=== PATIENT | female | born 1980 | race Caucasian/White ===

== ENCOUNTER 2019-03-19 13:54 | Outpatient (CLI) | payer BC ==
[~2019-03-19 13:54] MED LIST: FERUMOXYTOL (NON-ESRD) 510 MG/NS 100 ML IV PRN; FERUMOXYTOL 510 MG in NORMAL SALINE 100 ML IV PRN; NORMAL SALINE 250 ML IV PRN
[2019-03-19 14:22] VITALS: BP 120/58
== END 2019-03-19 15:40 | disposition home or self-care (01) ==
LOC: II 13:54 → 5TH 14:02 → II 15:40
PROVIDERS: ATTEND Internal Medicine Hematology & Oncology
PROC: 3E043GC Introduction of Other Therapeutic Substance into Central Vein, Percutaneous Approach (ICD-10-PCS; principal; 2019-03-19)
DX: D50.8 Other iron deficiency anemias (principal); K90.9 Intestinal malabsorption, unspecified
CPT/HCPCS: 96365; Q0138; J7050

== ENCOUNTER 2019-03-26 13:48 | Outpatient (CLI) | payer BC ==
[~2019-03-26 13:48] MED LIST changes: -FERUMOXYTOL (NON-ESRD) 510 MG/NS 100 ML IV PRN
[2019-03-26 14:11] VITALS: BP 115/62
== END 2019-03-26 14:47 | disposition home or self-care (01) ==
LOC: II 13:48 → 5TH 13:50 → II 14:47
PROVIDERS: ATTEND Internal Medicine Hematology & Oncology
PROC: 3E033GC Introduction of Other Therapeutic Substance into Peripheral Vein, Percutaneous Approach (ICD-10-PCS; principal; 2019-03-26)
DX: D50.8 Other iron deficiency anemias (principal); K90.9 Intestinal malabsorption, unspecified
CPT/HCPCS: 96365; Q0138; J7050

== ENCOUNTER 2019-12-09 13:25 | Observation (INO) | payer BC ==
[2019-12-09] MEDS ORDERED: ONDANSETRON 4 MG TAB.RAPDIS PO ONE (14:30)
--- NOTE | 2019-12-09 14:30 | ER Document Report ---
ED Medical Screen (RME) - General Chief Complaint: Abdominal Pain Stated Complaint: ABDOMINAL PAIN/NAUSEA/VOMITING Time Seen by Provider: 12/09/19 14:25 Primary Care Provider: ROMARIO WEISS PA-C [Primary Care Provider] - Follow up as needed Mode of Arrival: Wheelchair Information source: Patient Notes: 39-year-old female presents to ED for complaint of severe abdominal pain worse in the epigastric area. She states she has had nausea and vomiting. She does not have any history of this pain or vomiting in the past. She states she did eat sausage dip last night at dinner but stayed up a while after that. She states she has not had any alcohol in the least a week. Patient is alert oriented respirations regular nonlabored speaking in full sentences. She does still have her gallbladder. She states she has been using phentermine for weight loss. I have greeted and performed a rapid initial assessment of this patient. A comprehensive ED assessment and evaluation of the patient, analysis of test results and completion of medical decision making process will be conducted by an additional ED providers. TRAVEL OUTSIDE OF THE [place] IN LAST 30 DAYS: No - Related Data Allergies/Adverse Reactions: Penicillins Allergy (Verified 03/18/19 14:32) Physical Exam - Vital signs Vitals: Temp Pulse Resp BP Pulse Ox 98.1 F 72 18 118/63 100 12/09/19 14:00 12/09/19 14:00 12/09/19 14:00 12/09/19 14:00 12/09/19 14:00 Course - Vital Signs Vital signs: Temp Pulse Resp BP Pulse Ox 98.1 F 72 18 118/63 100 12/09/19 14:00 12/09/19 14:00 12/09/19 14:12/09/19 14:12/09/19 14:00 Doctor's Discharge - Discharge Referrals: ROMARIO WEISS PA-C [Primary Care Provider] - Follow up as needed
[2019-12-09 15:07] LABS: ABSOLUTE BASOPHILS # (AUTO) 0.1 10^3/uL (0.0-0.2); ABSOLUTE LYMPHOCYTES (AUTO) 0.9 10^3/uL (0.5-4.7); ABSOLUTE MONOCYTES (AUTO) 0.5 10^3/uL (0.1-1.4); ABSOLUTE NEUT (AUTO) 7.3 10^3/uL (1.7-8.2); BASOPHILS % (AUTO) 0.6 % (0-2); EOSINOPHILS % (AUTO) 0.4 % (0-6); HEMATOCRIT 46.5 % (36.0-47.0); HEMOGLOBIN 15.8 g/dL (12.0-15.5); MEAN CORPUSCULAR HEMOGLOBIN 30.2 pg (27.0-33.4); MEAN CORPUSCULAR HGB CONC 34.1 g/dL (32.0-36.0); MEAN CORPUSCULAR VOLUME 89 fl (80-97); PLATELET COUNT 346 10^3/uL (150-450); RED BLOOD COUNT 5.24 10^6/uL (3.72-5.28); RED CELL DISTRIBUTION WIDTH 13.2 % (11.5-14.0); TOTAL CELLS COUNTED % (AUTO) 100 %; WHITE BLOOD COUNT 8.8 10^3/uL (4.0-10.5)
[2019-12-09 15:22] LABS: AMORPHOUS SEDIMENT,URINE 1+ /HPF; APPEARANCE,URINE TURBID; BILIRUBIN,URINE NEGATIVE (NEGATIVE); COLOR,URINE YELLOW; GLUCOSE, URINE NEGATIVE (NEGATIVE); KETONES,URINE 80 mg/dL (NEGATIVE); PROTEIN,URINE 30 mg/dL (NEGATIVE); URINE SPECIFIC GRAVITY 1.017; UROBILINOGEN,URINE NEGATIVE mg/dL (<2.0)
[2019-12-09 15:30] LABS: ALBUMIN 4.7 g/dL (3.5-5.0); ALKALINE PHOSPHATASE 86 U/L (38-126); ANION GAP 10 (5-19); ASPARTATE AMINO TRANSFERASE 18 U/L (14-36); BILIRUBIN,TOTAL 0.6 mg/dL (0.2-1.3); BLOOD UREA NITROGEN 9 mg/dL (7-20); CALCIUM 10.3 mg/dL (8.4-10.2); CARBON DIOXIDE 27 mmol/L (22-30); CHLORIDE 99 mmol/L (98-107); GLUCOSE 103 mg/dL (75-110); POTASSIUM 4.6 mmol/L (3.6-5.0); TOTAL PROTEIN 7.6 g/dL (6.3-8.2)
--- NOTE | 2019-12-09 15:35 | RADIOLOGY REPORT (SQ) ---
EXAM DESCRIPTION: U/S ABDOMEN LIMITED W/O DOP COMPLETED DATE/TIME: 12/09/2019 3:24 pm REASON FOR STUDY: upper abdominal pain COMPARISON: None. TECHNIQUE: Dynamic and static grayscale images acquired of the abdomen and recorded on PACS. Additio nal selected color Doppler and spectral images recorded. LIMITATIONS: None. FINDINGS: PANCREAS: No masses. Visualized pancreatic duct normal caliber. LIVER: No masses. Echotexture normal. LIVER VASCULATURE: Normal directional flow of the main portal vein and hepatic veins. GALLBLADDER: No stones. Normal wall thickness. No pericholecystic fluid. ULTRASOUND-DETECTED PARDO'S SIGN: Negative. INTRAHEPATIC DUCTS AND COMMON DUCT: CBD and intrahepatic ducts normal caliber. No filling defects. INFERIOR VENA CAVA: Normal flow. AORTA: No aneurysm. RIGHT KIDNEY: Normal size measuring 11.8 cm. Normal echogenicity. No solid or suspicious masses. No hydronephrosis. No calcifications. PERITONEAL AND RIGHT PLEURAL SPACE: No ascites or effusions. OTHER: No other significant findings. IMPRESSION: Unremarkable right upper quadrant ultrasound. TECHNICAL DOCUMENTATION: JOB ID: [id number]- All Rights Reserved Reading location - IP/workstation name: [email or web address]
[2019-12-09] MEDS ORDERED: NORMAL SALINE 1000 ML 1,000 ML IV ONE (17:48)
[2019-12-09] MEDS ORDERED: MAG HYDROX/AL HYDROX/SIMETH SUSP 30 ML UDCUP PO ONE (17:49)
[2019-12-09] MEDS ORDERED: LIDOCAINE 2% VISCOUS SOLN 15 ML UDCUP PO ONE (17:49)
--- NOTE | 2019-12-09 17:51 | ER Document Report ---
ED GI/ - General Chief Complaint: Nausea/Vomiting Stated Complaint: ABDOMINAL PAIN/NAUSEA/VOMITING Time Seen by Provider: 12/09/19 14:25 Primary Care Provider: ROMARIO WEISS PA-C [NO LOCAL MD] - Follow up as needed Mode of Arrival: Wheelchair Notes: Patient is a 39-year-old white female with no significant past medical history who presents to the emergency department the chief complaint of epigastric abdominal pain that began this morning. Patient reports the pain is a burning pain located primarily in the epigastrium and right upper quadrant. She states the pain has worsened throughout the day. It is better with forward flexion of the spine and abdomen and worse with full extension and standing upright. She states it is associated with vomiting x2 after taking oral Tums. She denies any diarrhea. States she had an episode like this once before in the past was evaluated by her regular doctor who ordered an abdominal ultrasound which was normal. She does admit to recently taking prednisone for a sore throat complaint. Is concerned this may have caused a "gastritis". She denies any unusual changes to her diet or any alcohol. Denies any fever, chills or night sweats. No chest pain or shortness of breath. TRAVEL OUTSIDE OF THE [place] IN LAST 30 DAYS: No - Related Data Allergies/Adverse Reactions: Penicillins Allergy (Verified 03/18/19 14:32) Past Medical History - General Information source: Patient - Social History Smoking Status: Never Smoker Frequency of alcohol use: Rare Family History: None Patient has suicidal ideation: No Patient has homicidal ideation: No Review of Systems - Review of Systems Constitutional: No symptoms reported EENT: No symptoms reported Cardiovascular: No symptoms reported Respiratory: No symptoms reported Gastrointestinal: Abdominal pain, Diarrhea, Nausea Genitourinary: No symptoms reported Female Genitourinary: No symptoms reported Musculoskeletal: No symptoms reported Skin: No symptoms reported Neurological/Psychological: No symptoms reported Physical Exam - Vital signs Vitals: Temp Pulse Resp BP Pulse Ox 98.1 F 72 18 118/63 100 12/09/19 14:00 12/09/19 14:00 12/09/19 14:00 12/09/19 14:00 12/09/19 14:00 - General General appearance: Appears well In distress: Mild - HEENT Head: Normocephalic, Atraumatic Eyes: Normal Pupils: PERRL Nasal: Normal Mouth/Lips: Normal Mucous membranes: Moist Pharynx: Normal Neck: Normal - Respiratory Respiratory status: No respiratory distress Chest status: Nontender Breath sounds: Normal Chest palpation: Normal - Cardiovascular Rhythm: Regular Heart sounds: Normal auscultation - Abdominal Inspection: Normal Distension: No distension Bowel sounds: Normal Tenderness: Tender - Diffuse tenderness to light palpation in all quadrants Organomegaly: No organomegaly - Back Back: No: CVA tenderness - Neurological Neuro grossly intact: Yes Cognition: Normal Orientation: AAOx4 [place] Coma Scale Eye Opening: Spontaneous [place] Coma Scale Verbal: Oriented [place] Coma Scale Motor: Obeys Commands [place] Coma Scale Total: 15 Speech: Normal Sensory: Normal - Psychological Associated symptoms: Normal affect, Normal mood - Skin Skin Temperature: Warm Skin Moisture: Dry Skin Color: Normal Course - Re-evaluation Re-evalutation: 12/09/19 18:41 Reevaluation of the patient at this time, status post about 300 mL's of normal saline, GI cocktail the patient is not feeling much better. Will order IV Protonix and 0.5 Dilaudid. The gallbladder ultrasound was normal however her pain pattern is more diffuse in the abdomen. We will order a CT scan of the abdomen at this time. 12/09/19 19:50 Reevaluation at this time, I have just spoken with the radiologist who advised they cannot clearly define the abnormality in the patient's CAT scan that is infraumbilical and midline. I called the surgeon economics teacher to ask if he would mind looking to see if he sees any abnormalities that are surgically related as the radiologist could not exclude appendicitis. He advised that he would not evaluate the scan until he had a definitive finding from radiology. I discussed the case with Dr. Hansen, she will follow with the patient at this time. The patient has been ordered more Zofran for increased nausea after given Dilaudid. Her pain has only improved slightly. The radiologist would like another CAT scan after the patient has had time to drink oral contrast in hopes of more clearly defining the patient's CAT scan abnormality. I discussed this with the patient and her family and they are in agreement with the plan for repeat CAT scan after oral contrast. Dr. Hansen is aware and will follow. Patient is stable at this time of transfer. - Vital Signs Vital signs: Temp Pulse Resp BP Pulse Ox 98.2 F 73 18 118/67 99 12/09/19 17:09 12/09/19 17:09 12/09/19 17:09 12/09/19 17:09 12/09/19 17:09 - Laboratory Result Diagrams: 12/09/19 14:50 12/09/19 14:50 Laboratory results interpreted by me: 12/09/19 12/09/19 12/09/19 14:50 14:50 14:50 Hgb 15.8 H Lymph % (Auto) 10.0 L Seg Neutrophils % 83.0 H Sodium 135.7 L Calcium 10.3 H Urine Protein 30 H Urine Ketones 80 H - EKG Interpretation by Dc EKG shows normal: Sinus rhythm Rate: Normal Additional EKG results interpreted by me: 12/09/19 18:48 Sinus rhythm at 63 bpm. Normal intervals. No STEMI. Interpreted by ED attending. - Transfer of Care Care transferred to following provider: Dr. Hansen Discharge - Discharge Clinical Impression: Abdominal pain Qualifiers: Abdominal location: generalized Qualified Code(s): R10.84 - Generalized abdominal pain Condition: Stable Disposition: OTHER Referrals: ROMARIO WEISS PA-C [NO LOCAL MD] - Follow up as needed
[2019-12-09] MEDS ORDERED: PANTOPRAZOLE SODIUM 40 MG VIAL IV ONE (18:40)
[2019-12-09] MEDS ORDERED: HYDROMORPHONE HCL INJ/PF 2 MG/ML AMPULE IV ONE (18:40)
[2019-12-09] MEDS ORDERED: ONDANSETRON HCL INJ/PF 4 MG/2 ML SDV IV ONE ×2 (19:49→20:58)
--- NOTE | 2019-12-09 19:49 | RADIOLOGY REPORT (SQ) ---
EXAM DESCRIPTION: CT ABD/PELVIS WITH IV ONLY COMPLETED DATE/TIME: 12/09/2019 7:19 pm REASON FOR STUDY: diffuse abd pain COMPARISON: None. TECHNIQUE: CT scan of the abdomen and pelvis performed using helical scanning technique with dynamic intravenous contrast injection. No oral contrast. Images reviewed with lung, soft tissue, and bone windows. Reconstructed coronal and sagittal MPR images reviewed. Delayed images for evaluation of the urinary system also acquired. All images stored on PACS. All CT scanners at this facility use dose modulation, iterative reconstruction, and/or weight based d osing when appropriate to reduce radiation dose to as low as reasonably achievable (ALARA). [facility]: Dose Right [facility]: CareDose [facility]: Dose Right [facility]: Teradose 4D [facility]: Prisync CONTRAST TYPE AND DOSE: contrast/concentration: Isovue 350.00 mg/ml; Total Contrast Delivered: 73.0 ml; Total Saline Delivered: 66.0 ml RENAL FUNCTION: Creatinine 0.6 RADIATION DOSE: CT Rad equipment meets quality standard of care and radiation dose reduction techniq ues were employed. CTDIvol: 7.8 - 9.2 mGy. DLP: 891 mGy-cm.. LIMITATIONS: No oral contrast FINDINGS: In the midline infraumbilical region, a tubular hyperdense structure is present measuring about 140 Hounsfield units in density, about 10 cm in greatest length and 14 mm in greatest transvers e diameter. This is near the cecum, and amongst multiple distal small bowel loops. This may represe nt a Meckel's diverticulum with calcification in the wall. This could also represent a markedly abno rmal appendix. Short segment of small bowel mural calcification is possible. Adnexal pathology rela reyna to female pelvic organs is considered unlikely, as this is fairly far superior of out of the pelv is. Findings discussed with Dr. Kimball in the emergency room. LOWER CHEST: No significant findings. No nodules or infiltrates. LIVER: Normal size. No masses. No dilated ducts. SPLEEN: Normal size. No focal lesions. PANCREAS: No masses. No significant calcifications. No adjacent inflammation or peripancreatic fluid collections. Pancreatic duct not dilated. GALLBLADDER: No identified stones by CT criteria. No inflammatory changes to suggest cholecystitis. ADRENAL GLANDS: No significant masses or asymmetry. RIGHT KIDNEY AND URETER: No solid masses. No significant calcifications. No hydronephrosis or hyd roureter. LEFT KIDNEY AND URETER: No solid masses. No significant calcifications. No hydronephrosis or hydr oureter. AORTA AND VESSELS: No aneurysm. No dissection. Renal arteries, SMA, celiac without stenosis. RETROPERITONEUM: No retroperitoneal adenopathy, hemorrhage or masses. BOWEL AND PERITONEAL CAVITY: No CT evidence of bowel obstruction. No free intraperitoneal air or flu id. Large amount of stool in the ascending and transverse colon. Question Meckel's diverticulum meghna roula markedly abnormal appendix as above. PELVIS: No mass. No free fluid. Normal bladder. Normal size uterus and ovaries ABDOMINAL WALL: No masses. No hernias. BONES: No significant or acute findings. OTHER: No other significant finding. IMPRESSION: Tubular partially calcified hyperdense bowel like structure in the mid abdomen. This co uld represent a Meckel's diverticulum or markedly abnormal appendix. Short segment of small bowel wi th mural calcification is possible. Balloon Maker pathology considered unlikely. Findings discussed with the emergency room attending physician. TECHNICAL DOCUMENTATION: JOB ID: [id number] Quality ID # [id number]: Final reports with documentation of one or more dose reduction techniques (e.g., Au tomated exposure control, adjustment of the mA and/or kV according to patient size, use of iterative reconstruction technique) 2010 [employer]- All Rights Reserved Reading location - IP/workstation name: [email or web address]
--- NOTE | 2019-12-09 21:51 | EKG REPORT ---
SEVERITY:- NORMAL ECG - SINUS RHYTHM : Confirmed by: Tabitha Santos MD 09-Dec-2019 21:50:44
[2019-12-09] MEDS ORDERED: PROMETHAZINE HCL INJ 25 MG/1 ML VIAL IV ONE (22:41)
[2019-12-09] MEDS ORDERED: NORMAL SALINE 500 ML IV ONE (22:42)
[2019-12-09] MEDS ORDERED: FENTANYL CITRATE INJ/PF 100 MCG/2 ML AMPUL IV ONE (23:26)
[2019-12-10] MEDS ORDERED: PROMETHAZINE HCL INJ 25 MG/1 ML VIAL IV ONE (02:14)
[2019-12-10] MEDS ORDERED: FENTANYL CITRATE INJ/PF 100 MCG/2 ML AMPUL IV ONE ×2 (02:14→07:04)
[2019-12-10] MEDS ORDERED: NORMAL SALINE 500 ML IV ONE (02:15)
--- NOTE | 2019-12-10 03:27 | ER Document Report ---
Doctor's Note Notes: 12/10/19 03:25 Care of this patient was turned over to me by physician assistant news director Jigar. In short, this is a 39-year-old female who developed abdominal pain, nausea, vomiting. She states she is not passing any gas. She is afebrile.. On physical exam she has diffuse moderate abdominal tenderness with some voluntary guarding but no rebound. At the time of my initial evaluation, patient had been vomiting heavily, was not tolerating oral contrast. She required further medication for pain and nausea. Decision was made to proceed with administration of oral contrast, as noncontrasted CT scan was inconclusive. She was medicated with fentanyl, Phenergan, IV fluids. She was able to tolerate more of the oral contrast. Serial abdominal exams were performed and found to remain tender with some voluntary guarding, but again no other peritoneal signs. Her vitals remained stable. At this point, patient has not consumed enough of the oral contrast for repeat CT scan. Care of this patient is turned over to physician assistant news director Sarthak Peterson. Please see his note for the remainder this patient's ED course and disposition.
[2019-12-10] MEDS ORDERED: DIPHENHYDRAMINE HCL 50 MG/ML VIAL IV ONE ×2 (06:09→07:04)
[2019-12-10] MEDS ORDERED: ONDANSETRON HCL INJ/PF 4 MG/2 ML SDV IV ONE ×2 (08:51→11:24)
--- NOTE | 2019-12-10 09:15 | RADIOLOGY REPORT (SQ) ---
EXAM DESCRIPTION: CT ABD/PELVIS ORAL ONLY COMPLETED DATE/TIME: 12/10/2019 7:07 am REASON FOR STUDY: abd pain, suspicious lower abd mass COMPARISON: CT abdomen pelvis 12/09/2019 TECHNIQUE: CT scan of the abdomen and pelvis performed without intravenous contrast. PATIENT DRANK VERY LIMITED ORAL CONTRAST. Images reviewed with lung, soft tissue, and bone windows. Reconstructed coronal and sagittal MPR imag es reviewed. All images stored on PACS. All CT scanners at this facility use dose modulation, iterative reconstruction, and/or weight based d osing when appropriate to reduce radiation dose to as low as reasonably achievable (ALARA). [facility]: Dose Right [facility]: CareDose [facility]: Dose Right [facility]: Teradose 4D [facility]: [employer] RADIATION DOSE: CT Rad equipment meets quality standard of care and radiation dose reduction techniq ues were employed. CTDIvol: 7.3 mGy. DLP: 368 mGy-cm.mGy. LIMITATIONS: POOR oral contrast FINDINGS: Since the prior CT exam 12/09/2019 1905 hours, patient was encouraged to drink oral contrast . Only minimal oral contrast is seen in the stomach. There is minimal increased density in small bowel loops near the ileocecal valve, similar compared to the study 12/09/2019 1905 hours. Large amount of stool persists in the ascending and transverse colon. Appendix is not definitely cristian ntified. There is now a small amount of right lower quadrant free fluid tracking up into the right pericolic g utter and right hepatorenal fossa. These findings were discussed with Dr. Kimball in the emergency room 0900 hours, 12/10/2019. Remainder of the study demonstrates radiodense bile in the gallbladder from prior IV contrast, and mi nimal residual IV contrast in nondistended urinary bladder and bilateral collecting systems. IMPRESSION: Since the prior CT exam 1900 hours last evening, patient has developed free pelvic fluid and right lower quadrant fluid tracking up the right pericolic gutter. Limited oral contrast from the stomach. Unable to definitely identify the appendix Abnormal bowel loop seen on prior CT 12/09/2019 1905 hours is persistent. COMMENT: Quality ID # 436: Final reports with documentation of one or more dose reduction techniques (e.g., Automated exposure control, adjustment of the mA and/or kV according to patient size, use of iterative reconstruction technique) TECHNICAL DOCUMENTATION: JOB ID: [id number] [employer]- All Rights Reserved Reading location - IP/workstation name: [email or web address]
--- NOTE | 2019-12-10 09:38 | ER Document Report ---
Doctor's Note Notes: 12/10/19 09:36 Patient was signed out to me this morning at shift change at 8 AM by BRANDON De León. At the time the patient was pending reading of the CT abdomen and pelvis with oral contrast. At 9 AM I spoke with the radiologist Dr. Dickinson who states she is still unable to identify specific findings on the CAT scan. Reports the results are equivocal. Patient still has a diffusely tender abdomen, does not distended but she is very uncomfortable and has intractable abdominal pain with ongoing nausea and vomiting. I consulted surgery on-call, Dr. Doc Sanchez at this time. I discussed with him the equivocal findings of the CAT scan and my concern for surgical abdomen and requested he come evaluate the patient in the emergency department. He advised that I am not a physician and the need to run the case by my supervising physician and then have them contact him. At this time he has declined to come and evaluate the patient. Spoke with Dr. Epps who will be assisting with the case. He has also spoken with the radiologist and will evaluate the patient at bedside. Agrees with plan for surgical consult. 12/10/19 11:39 Dr. Epps assumed care of this patient, he has reordered repeat blood work, pelvic ultrasound and has reexamined the patient, he will continue to plan for surgical consult, he is pending return call from surgeon at this time. Care transferred completely to Dr. Epps.
[2019-12-10] MEDS ORDERED: DEXAMETHASONE SOD PHOSPHATE INJ 4 MG/1 ML VIAL ONE (09:48)
[2019-12-10] MEDS ORDERED: ONDANSETRON HCL INJ/PF 4 MG/2 ML SDV ONE (09:48)
[2019-12-10] MEDS ORDERED: NEOSTIGMINE METHYLSULFATE 10 MG/10 ML VIAL ONE (09:48)
[2019-12-10] MEDS ORDERED: GLYCOPYRROLATE 1 MG/5 ML VIAL ONE (09:48)
[2019-12-10] MEDS ORDERED: SUCCINYLCHOLINE CHLORIDE INJ 200 MG/10 ML VIAL ONE (09:48)
[2019-12-10] MEDS ORDERED: ROCURONIUM BROMIDE INJ 50 MG/5 ML VIAL IV ONE (09:48)
[2019-12-10] MEDS ORDERED: DEXTROSE 5%-NORMAL SALINE 1,000 ML IV ONE (10:56)
[2019-12-10] MEDS ORDERED: MORPHINE SULFATE 10 MG/ML INJ IV ONE (11:23)
[2019-12-10 12:07] LABS: ABSOLUTE EOSINOPHILS # (AUTO) 0.1 10^3/uL (0.0-0.6); ABSOLUTE MONOCYTES (AUTO) 0.7 10^3/uL (0.1-1.4); ABSOLUTE NEUT (AUTO) 7.1 10^3/uL (1.7-8.2); BASOPHILS % (AUTO) 0.5 % (0-2); EOSINOPHILS % (AUTO) 0.6 % (0-6); HEMATOCRIT 38.8 % (36.0-47.0); LYMPHOCYTES % (AUTO) 11.1 % (13-45); MEAN CORPUSCULAR VOLUME 89 fl (80-97); MONOCYTES % (AUTO) 7.4 % (3-13); PLATELET COUNT 302 10^3/uL (150-450); RED BLOOD COUNT 4.38 10^6/uL (3.72-5.28); RED CELL DISTRIBUTION WIDTH 13.1 % (11.5-14.0); SEGMENTED NEUTROPHILS % (AUTO) 80.4 % (42-78); TOTAL CELLS COUNTED % (AUTO) 100 %; WHITE BLOOD COUNT 8.9 10^3/uL (4.0-10.5)
[2019-12-10 12:10] LABS: HEMOGLOBIN 13.6 g/dL (12.0-15.5)
[2019-12-10 12:19] LABS: ALBUMIN 3.7 g/dL (3.5-5.0); ALKALINE PHOSPHATASE 68 U/L (38-126); ANION GAP 9 (5-19); ASPARTATE AMINO TRANSFERASE 14 U/L (14-36); BILIRUBIN,DIRECT 0.2 mg/dL (0.0-0.4); BILIRUBIN,TOTAL 0.5 mg/dL (0.2-1.3); BLOOD UREA NITROGEN 9 mg/dL (7-20); CARBON DIOXIDE 26 mmol/L (22-30); CHLORIDE 100 mmol/L (98-107); GLUCOSE 95 mg/dL (75-110); POTASSIUM 4.4 mmol/L (3.6-5.0); TOTAL PROTEIN 6.3 g/dL (6.3-8.2)
--- NOTE | 2019-12-10 13:53 | RADIOLOGY REPORT (SQ) ---
EXAM DESCRIPTION: U/S NON OB PEL TV W/DOPPLER COMPLETED DATE/TIME: 12/10/2019 1:20 pm REASON FOR STUDY: pelvic pain/ COMPARISON: None. TECHNIQUE: Dynamic and static grayscale images acquired of the pelvis via transvaginal approach and recorded on PACS. Additional selected color Doppler and spectral images recorded. LIMITATIONS: None. FINDINGS: UTERUS: Contour normal. No mass. ENDOMETRIAL STRIPE: No focal or generalized thickening. No masses. CERVIX: The cervix measures 3.0 cm in length. Small Nabothian cysts. RIGHT OVARY AND DOPPLER: Normal size. A 2.2 x 1.8 x 1.5 cm dominant follicle. Normal arterial vascu lar flow without evidence for torsion. LEFT OVARY AND DOPPLER: Normal size. No worrisome masses. Normal arterial vascular flow without evide nce for torsion. FREE FLUID: Small amount of free fluid in the pelvis, may be on a physiologic basis. OTHER: No other significant finding. MEASUREMENTS: UTERUS: 12.5 x 6.7 x 6.3 cm ENDOMETRIAL STRIPE: 1.0 cm RIGHT OVARY: 3.6 x 3.2 x 2.1 cm LEFT OVARY: 3.0 x 2.5 x 1.3 cm IMPRESSION: 1. A right ovarian dominant follicle. 2. Small Nabothian cysts in the cervix region. 3. Small amount of free fluid in the pelvis may be on a physiologic basis. TECHNICAL DOCUMENTATION: JOB ID: [id number]- All Rights Reserved Rev-03/23 Reading location - IP/workstation name: [email or web address]
[2019-12-10] MEDS ORDERED: ONDANSETRON HCL INJ/PF 4 MG/2 ML SDV IV PRN (14:26)
[2019-12-10] MEDS ORDERED: MORPHINE SULFATE 10 MG/ML INJ IV PRN ×2 (14:26→19:56)
[2019-12-10] MEDS ORDERED: NORMAL SALINE 1000 ML 1,000 ML IV PRN ×2 (14:26→21:17)
--- NOTE | 2019-12-10 14:26 | PDOC H&P ---
History of Present Illness Admission Date/PCP: XAVIER YANG MD Patient complains of: Right lower quadrant abdominal pain History of Present Illness: CHRISTINA DAVIDSON is a 39 year old female, healthy, with a history ovarian cyst since young age, who presents to the emergency room with a complain of right lower quadrant pain intense nausea and emesis. The patient has undergone 2 CT scan of the abdomen pelvis as well as an ultrasound transvaginal of the abdomen, both have been overall nondiagnostic except for the presence of a small amount of free fluid in the right pelvis. Her white blood cell count and urine analysis are normal. The patient still complains of right lower quadrant pain throughout the entire emergency room stay for the past 16 hours. 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 Women Tablet] 1 tab PO DAILY 03/19/19 Allergies/Adverse Reactions: Penicillins Allergy (Verified 03/18/19 14:32) Physical Exam Vital Signs: Temp Pulse Resp BP Pulse Ox 98.2 F 74 18 137/80 H 100 12/10/19 11:54 12/10/19 11:54 12/10/19 11:54 12/10/19 11:54 12/10/19 11:54 Intake & Output 12/09/19 12/10/19 12/11/19 06:59 06:59 06:59 Intake Total 1999 Balance 1999 Weight 63.503 kg General appearance: PRESENT: no acute distress, thin, well-developed Head exam: PRESENT: atraumatic, normocephalic Eye exam: PRESENT: PERRLA Mouth exam: PRESENT: dry mucosa, neck supple Neck exam: PRESENT: full ROM Respiratory exam: PRESENT: chest wall tenderness Cardiovascular exam: PRESENT: RRR GI/Abdominal exam: PRESENT: soft, tenderness - Identified in the right lower quadrant area as well is in the periumbilical area, without grimacing or guarding Extremities exam: PRESENT: full ROM Musculoskeletal exam: PRESENT: full ROM Neurological exam: PRESENT: alert, awake, oriented to time, CN II-XII grossly intact Psychiatric exam: PRESENT: appropriate affect Skin exam: PRESENT: warm Results Laboratory Results: 12/10/19 11:40 12/10/19 11:40 12/09/19 12/09/19 12/09/19 14:50 14:50 14:50 WBC 8.8 RBC 5.24 Hgb 15.8 H Hct 46.5 MCV 89 MCH 30.2 MCHC 34.1 RDW 13.2 Plt Count 346 Seg Neutrophils % 83.0 H Sodium 135.7 L Potassium 4.6 Chloride 99 Carbon Dioxide 27 Anion Gap 10 BUN 9 Creatinine 0.57 Est GFR ( Amer) > 60 Glucose 103 Lactic Acid Calcium 10.3 H Total Bilirubin 0.6 AST 18 Alkaline Phosphatase 86 Total Protein 7.6 Albumin 4.7 Lipase 45.1 Urine Color YELLOW Urine Appearance TURBID Urine pH 9.0 Ur Specific [place] 1.017 Urine Protein 30 H Urine Glucose (UA) NEGATIVE Urine Ketones 80 H Urine Blood NEGATIVE Urine RBC (Auto) 1 12/10/19 12/10/19 12/10/19 11:40 11:40 11:40 WBC 8.9 RBC 4.38 Hgb 13.6 D Hct 38.8 MCV 89 MCH 31.0 MCHC 35.0 RDW 13.1 Plt Count 302 Seg Neutrophils % 80.4 H Sodium 134.7 L Potassium 4.4 Chloride 100 Carbon Dioxide 26 Anion Gap 9 BUN 9 Creatinine 0.59 Est GFR ( Amer) > 60 Glucose 95 Lactic Acid 0.9 Calcium 9.0 Total Bilirubin 0.5 AST 14 Alkaline Phosphatase 68 Total Protein 6.3 Albumin 3.7 Lipase 83.8 Urine Color Urine Appearance Urine pH Ur Specific [place] Urine Protein Urine Glucose (UA) Urine Ketones Urine Blood Urine RBC (Auto) 12/09/19 14:50 Troponin I < 0.012 Impressions: Abdomen Ultrasound 12/09/19 14:31 IMPRESSION: Unremarkable right upper quadrant ultrasound. Abdomen/Pelvis CT 12/10/19 00:00 IMPRESSION: Since the prior CT exam 1900 hours last evening, patient has developed free pelvic fluid and right lower quadrant fluid tracking up the right pericolic gutter. Limited oral contrast from the stomach. Unable to definitely identify the appendix Abnormal bowel loop seen on prior CT 12/09/2019 1905 hours is persistent. Transvaginal US 12/10/19 10:53 IMPRESSION: 1. A right ovarian dominant follicle. 2. Small Nabothian cysts in the cervix region. 3. Small amount of free fluid in the pelvis may be on a physiologic basis. Assessment & Plan - Diagnosis (1) Right lower quadrant abdominal pain Is this a current diagnosis for this admission?: Yes (2) Intraperitoneal fluid Is this a current diagnosis for this admission?: Yes - Plan Summary Plan Summary: Assessment: Right lower quadrant pain for [address] scan of the abdomen pelvis x2 and ultrasound of the pelvis transvaginal x1 reveals only the presence of free right pelvic fluid; the appendix is not identified and there is a possibility of the presence of Meckel diverticulum Blood work and urinalysis within normal limits Physical exam significant only for a mild tenderness in the right lower quadrant and periumbilical area Plan: Diagnostic laparoscopy with appendectomy Procedure, risks, benefits, complications, including the possibility of Meckel diverticulum, bowel disorders, or gynecologic conditions which might require urgent operation have been fully described with the patient, she understands all the above, her questions were answered to her satisfaction, and she decides to proceed N.p.o. Continue IV fluids Clindamycin and Cipro preop
[2019-12-10] MEDS ORDERED: CLINDAMYCIN 600 MG/D5W RTU 600 MG/50 ML RTUPB IV PRN (14:30)
[2019-12-10] MEDS ORDERED: LEVOFLOXACIN 500 MG/D5W RTU 500 MG/100 ML RTUPB IV PRN (14:32)
[2019-12-10] MEDS: FAMOTIDINE INJ/PF 20 MG/2 ML SDV IV SCH ×2 (16:07→22:55)
[2019-12-10] MEDS ORDERED: FENTANYL CITRATE INJ/PF 250 MCG/5 ML AMPULE ONE (19:01)
[2019-12-10] MEDS ORDERED: HYDROMORPHONE HCL INJ/PF 2 MG/ML AMPULE ONE (19:02)
[2019-12-10] MEDS ORDERED: PROPOFOL INJ 200 MG/20 ML VIAL IV ONE (19:02)
[2019-12-10] MEDS ORDERED: MIDAZOLAM 2 MG/2 ML INJ ONE (19:02)
[2019-12-10] MEDS ORDERED: BUPIVACAINE HCL 0.5 % INJ/PF 30 ML SDV ONE (19:32)
[2019-12-10] MEDS ORDERED: BUPIVACAINE HCL 0.5 % INJ/PF 30 ML SDV INJ ONE (19:41)
[2019-12-10] MEDS ORDERED: MEPERIDINE HCL/PF INJ 25 MG/1 ML DISP.SYRIN IV PRN (19:56)
[2019-12-10] MEDS ORDERED: PROMETHAZINE HCL INJ 25 MG/1 ML VIAL IV PRN (19:56)
[2019-12-10] MEDS ORDERED: FENTANYL CITRATE INJ/PF 100 MCG/2 ML AMPUL IV PRN ×3 (19:56)
[2019-12-10] MEDS ORDERED: DIPHENHYDRAMINE HCL 50 MG/ML VIAL IV PRN (19:56)
--- NOTE | 2019-12-10 21:09 | Operative Report ---
Nonrecallable Operative Report DATE OF SURGERY: 12/10/19 PREOPERATIVE DIAGNOSIS: Right upper quadrant abdominal pain, intraperitoneal fluid POSTOPERATIVE DIAGNOSIS: Same, terminal ileitis, normal appendix OPERATION: Diagnostic laparoscopy, laparoscopic appendectomy SURGEON: MICHELLE RASHEED ANESTHESIA: Other - 15 mL's 1% lidocaine TISSUE REMOVED OR ALTERED: Normal appendix COMPLICATIONS: None ESTIMATED BLOOD LOSS: Negligible less than 5 mL INTRAOPERATIVE FINDINGS: Normal appendix, moderate amount of serous intraper itoneal fluid. Inflamed terminal ileum PROCEDURE: The procedure was done in the operating room. The patient was placed in a supine position, general anesthesia induced by endotracheal intubation[, Ruano catheter was inserted], the abdomen was prepped and draped in usual fashion. An incision was made just above the umbilicus with a #15 blade, the skin was tented with towel clips and a 5 mm port with Optiview adapter and scope were inserted through the abdominal wall into the peritoneal cavity. After they CO2 pneumoperitoneum was obtained, under direct visualization a 5 mm report was inserted in the right lateral quadrant of the abdomen following skin incision. The scope was removed from the umbilical port and inserted into the right side port. The 5 mm umbilical port was removed and replaced with a 12 mm port, while the 5 mm port was inserted in left lower quadrant of the abdomen following skin incision. The patient was placed in steep Trendelenburg position with the right side elevated. The appendix was then identified by tracing the anterior tenia of the cecum, the appendix was then found, elevated, and stretched. The mesentery of the appendix was divided with the LigaSure. The appendix was found to be normal. The appendix was stapled at the base with an Endo PHOEBE stapler, extracted from the peritoneal cavity with an Endobag through the umbilical port. The pneumoperitoneum was then re-established, the stapled line was examined and found to be intact. The right lower quadrant was then inspected as well as the rest of the abdomenal cavity. The right and left ovaries, tubes, and uterus were normal. The cecum and right colon appeared to be normal, the terminal ileum was erythematous with patchy areas of erythema and thickening of the bowel wall for the last 30 cm. The small bowel was normal proximal to that. No Meckel diverticulum was noted. The intraperitoneal fluid was aspirated and sent for Gram stain as well as aerobic and anaerobic cultures. After this was accomplished, the umbilical fascial defect was closed with a [id number] 0 Vicryl suture, placed with a fascia closure device under direct visualization and left untied. All instruments were removed, the pneumoperitoneum was released, and all ports were removed. The umbilical fascial defect was closed with the previously placed [id number] 0 Vicryl suture, all skin incisions were closed with a 4-0 PDS running subcuticular suture, and covered with Dermabond. The patient tolerated the procedure well, was extubated, and transferred to the recovery room in satisfactory conditions.
[2019-12-10] MEDS: CLINDAMYCIN 600 MG/D5W RTU 600 MG/50 ML RTUPB IV SCH (22:56)
[2019-12-10] MEDS: KETOROLAC TROMETHAMINE INJ/PF 30 MG/1 ML SDV IV SCH (23:00)
[2019-12-11] MEDS ORDERED: ACETAMINOPHEN 1,000 MG/100 ML RTUPB IV ONE (01:45)
--- NOTE | 2019-12-11 04:53 | PDOC CONSULTATION ---
Consultation Consult Date: 12/10/19 Attending physician:: MICHELLE RASHEED Provider Consulted: MONTSERRAT LOPES History of Present Illness Admission Date/PCP: 12/10/19 15:51 XAVIER YANG MD Patient complains of: Abdominal pain History of Present Illness: CHRISTINA DAVIDSON is a 39 year old female without significant past medical history presents with abdominal pain nausea and vomiting without fever or diarrhea starting 16 hours prior to presentation. She is taken to the OR for presumptive appendicitis but ultimately found to have an unremarkable appendix but a inflamed terminal ileum. Patient returned from [facility] where she a friend and partner hand fed iguana. Her friend had similar symptoms for approximately 24 hours but resolved spontaneously without intervention. 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 Past Surgical History Past Surgical History: Reports: Appendectomy Social History Information Source: Patient Lives with: Family Smoking Status: Never Smoker Frequency of Alcohol Use: None Hx Recreational Drug Use: No Drugs: None Hx Prescription Drug Abuse: No - Advance Directive Resuscitation Status: Full Code Family History Family History: Other - Irritable bowel and mother but NOT inflammatory bowel Parental Family History Reviewed: Yes Children Family History Reviewed: Yes Sibling(s) Family History Reviewed.: Yes Medication/Allergy Home Medications: Doxylamine Succinate [Unisom] 25 mg PO HSP PRN 12/10/19 Phentermine HCl [Adipex-P] 37.5 mg PO DAILY 12/10/19 Allergies/Adverse Reactions: Penicillins Allergy (Verified 03/18/19 14:32) Review of Systems Constitutional: ABSENT: chills, fever(s), headache(s), weight gain, weight loss Eyes: ABSENT: visual disturbances Ears: ABSENT: hearing changes Cardiovascular: ABSENT: chest pain, dyspnea on exertion, edema, orthropnea, palpitations Respiratory: ABSENT: cough, hemoptysis Gastrointestinal: ABSENT: abdominal pain, constipation, diarrhea, hematemesis, hematochezia, nausea, vomiting Genitourinary: ABSENT: dysuria, hematuria Musculoskeletal: ABSENT: joint swelling Integumentary: ABSENT: rash, wounds Neurological: ABSENT: abnormal gait, abnormal speech, confusion, dizziness, focal weakness, syncope Psychiatric: ABSENT: anxiety, depression, homidical ideation, suicidal ideation Endocrine: ABSENT: cold intolerance, heat intolerance, polydipsia, polyuria Hematologic/Lymphatic: ABSENT: easy bleeding, easy bruising Physical Exam Vital Signs: Temp Pulse Resp BP Pulse Ox 98.4 F 64 16 118/64 100 12/11/19 03:02 12/11/19 03:02 12/11/19 03:02 12/11/19 03:02 12/11/19 03:02 Intake & Output 12/09/19 12/10/19 12/11/19 11:59 11:59 11:59 Intake Total 1999 259 Output Total 5 Balance 1999 2587 Weight 63.503 kg General appearance: PRESENT: no acute distress, well-developed, well-nourished Head exam: PRESENT: atraumatic, normocephalic Eye exam: PRESENT: conjunctiva pink, EOMI, PERRLA. ABSENT: scleral icterus Ear exam: PRESENT: normal external ear exam Mouth exam: PRESENT: moist, tongue midline Neck exam: ABSENT: carotid bruit, JVD, lymphadenopathy, thyromegaly Respiratory exam: PRESENT: clear to auscultation mary. ABSENT: rales, rhonchi, wheezes Cardiovascular exam: PRESENT: RRR. ABSENT: diastolic murmur, rubs, systolic murmur Pulses: PRESENT: normal dorsalis pedis pul Vascular exam: PRESENT: normal capillary refill GI/Abdominal exam: PRESENT: hypoactive bowel sounds, normal bowel sounds, soft, tenderness. ABSENT: distended, guarding, mass, organolmegaly, rebound Rectal exam: PRESENT: deferred Extremities exam: PRESENT: full ROM. ABSENT: calf tenderness, clubbing, pedal edema Neurological exam: PRESENT: alert, awake, oriented to person, oriented to place, oriented to time, oriented to situation, CN II-XII grossly intact. ABSENT: motor sensory deficit Psychiatric exam: PRESENT: appropriate affect, normal mood. ABSENT: homicidal ideation, suicidal ideation Skin exam: PRESENT: dry, intact, warm. ABSENT: cyanosis, rash Results Laboratory Results: 12/10/19 11:40 12/10/19 11:40 12/10/19 12/10/19 12/10/19 11:40 11:40 11:40 WBC 8.9 RBC 4.38 Hgb 13.6 D Hct 38.8 MCV 89 MCH 31.0 MCHC 35.0 RDW 13.1 Plt Count 302 Seg Neutrophils % 80.4 H Sodium 134.7 L Potassium 4.4 Chloride 100 Carbon Dioxide 26 Anion Gap 9 BUN 9 Creatinine 0.59 Est GFR ( Amer) > 60 Glucose 95 Lactic Acid 0.9 Calcium 9.0 Total Bilirubin 0.5 AST 14 Alkaline Phosphatase 68 Total Protein 6.3 Albumin 3.7 Lipase 83.8 12/09/19 14:50 Troponin I < 0.012 Impressions: Abdomen Ultrasound 12/09/19 14:31 IMPRESSION: Unremarkable right upper quadrant ultrasound. Abdomen/Pelvis CT 12/10/19 00:00 IMPRESSION: Since the prior CT exam 1900 hours last evening, patient has developed free pelvic fluid and right lower quadrant fluid tracking up the right pericolic gutter. Limited oral contrast from the stomach. Unable to definitely identify the appendix Abnormal bowel loop seen on prior CT 12/09/2019 1905 hours is persistent. Transvaginal US 12/10/19 10:53 IMPRESSION: 1. A right ovarian dominant follicle. 2. Small Nabothian cysts in the cervix region. 3. Small amount of free fluid in the pelvis may be on a physiologic basis. Assessment and Plan - Diagnosis (1) Ileitis Is this a current diagnosis for this admission?: Yes Plan: Most likely secondary to Yersinia, agree with 24 hours of antibiotics given surgery and possible increase of systemic spread however antibiotics customarily deployed. If systemic symptoms occur from bacteremia suggest IV Rocephin or ciprofloxacin pending culture results ordered. Hygiene education with exotic animals. (2) Abdominal pain Qualifiers: Abdominal location: generalized Qualified Code(s): R10.84 - Generalized abdominal pain Is this a current diagnosis for this admission?: Yes Plan: Secondary to #1, symptomatic management - Time Time Spent with patient: 15-24 minutes
[2019-12-11] MEDS: KETOROLAC TROMETHAMINE INJ/PF 30 MG/1 ML SDV IV SCH (06:41)
[2019-12-11] MEDS: CLINDAMYCIN 600 MG/D5W RTU 600 MG/50 ML RTUPB IV SCH (06:47)
[2019-12-11 07:12] LABS: HEMATOCRIT 34.8 % (36.0-47.0); HEMOGLOBIN 12.2 g/dL (12.0-15.5); MEAN CORPUSCULAR HEMOGLOBIN 30.9 pg (27.0-33.4); MEAN CORPUSCULAR HGB CONC 35.1 g/dL (32.0-36.0); MEAN CORPUSCULAR VOLUME 88 fl (80-97); PLATELET COUNT 250 10^3/uL (150-450); RED BLOOD COUNT 3.94 10^6/uL (3.72-5.28); RED CELL DISTRIBUTION WIDTH 12.7 % (11.5-14.0); WHITE BLOOD COUNT 10.4 10^3/uL (4.0-10.5)
[2019-12-11 07:25] LABS: ANION GAP 10 (5-19); BLOOD UREA NITROGEN 8 mg/dL (7-20); CALCIUM 8.5 mg/dL (8.4-10.2); CARBON DIOXIDE 21 mmol/L (22-30); CHLORIDE 104 mmol/L (98-107); GLUCOSE 86 mg/dL (75-110); POTASSIUM 4.1 mmol/L (3.6-5.0)
--- NOTE | 2019-12-11 08:29 | ER Document Report ---
Doctor's Note Notes: 12/11/19 08:21 Pt evaluated and examined on 12/10/2019 time 10:00 AM Abd pain gretest in Rlq with minimal rebound. Rectal exam without distinct palpable pain or mass appreciated, and normal color stool, guaiac negative. Reviewed labs and Ct scan reports. Discussed case with Radiologist and surgicalist, Dr Hu. Ordered Ultra Sound Transvaginal pelvic exam. Dr Hu will consult on patient once US report is reported. . Ordered IVF and pain control, and anti nausea medications. Patient is hemodynmically stable and pending surgeon's evaluation and decision.
[2019-12-11] MEDS ORDERED: ACETAMINOPHEN 1,000 MG/100 ML RTUPB IV SCH (09:00)
--- NOTE | 2019-12-11 09:28 | PDOC PROGRESS REPORT ---
Subjective Progress Note for:: 12/11/19 Reason For Visit: RIGHT LOWER QUADRANT ABDOMINAL PAIN Physical Exam Vital Signs: Temp Pulse Resp BP Pulse Ox 98.4 F 65 16 109/65 100 12/11/19 08:18 12/11/19 08:18 12/11/19 08:18 12/11/19 08:18 12/11/19 08:18 Intake & Output 12/10/19 12/11/19 12/12/19 06:59 06:59 06:59 Intake Total 1999 2593 240 Output Total Balance 1999 2588 240 Weight 63.503 kg 66.5 kg Results Laboratory Results: 12/11/19 06:42 12/11/19 06:42 12/10/19 12/10/19 12/10/19 11:40 11:40 11:40 WBC 8.9 RBC 4.38 Hgb 13.6 D Hct 38.8 MCV 89 MCH 31.0 MCHC 35.0 RDW 13.1 Plt Count 302 Seg Neutrophils % 80.4 H Sodium 134.7 L Potassium 4.4 Chloride 100 Carbon Dioxide 26 Anion Gap 9 BUN 9 Creatinine 0.59 Est GFR ( Amer) > 60 Glucose 95 Lactic Acid 0.9 Calcium 9.0 Total Bilirubin 0.5 AST 14 Alkaline Phosphatase 68 Total Protein 6.3 Albumin 3.7 Lipase 83.8 12/11/19 12/11/19 06:42 06:42 WBC 10.4 RBC 3.94 Hgb 12.2 Hct 34.8 L MCV 88 MCH 30.9 MCHC 35.1 RDW 12.7 Plt Count 250 Seg Neutrophils % Sodium 134.6 L Potassium 4.1 Chloride 104 Carbon Dioxide 21 L Anion Gap 10 BUN 8 Creatinine 0.53 Est GFR ( Amer) > 60 Glucose 86 Lactic Acid Calcium 8.5 Total Bilirubin AST Alkaline Phosphatase Total Protein Albumin Lipase 12/09/19 14:50 Troponin I < 0.012 Impressions: Abdomen Ultrasound 12/09/19 14:31 IMPRESSION: Unremarkable right upper quadrant ultrasound. Abdomen/Pelvis CT 12/10/19 00:00 IMPRESSION: Since the prior CT exam 1900 hours last evening, patient has developed free pelvic fluid and right lower quadrant fluid tracking up the right pericolic gutter. Limited oral contrast from the stomach. Unable to definitely identify the appendix Abnormal bowel loop seen on prior CT 12/09/2019 1905 hours is persistent. Transvaginal US 12/10/19 10:53 IMPRESSION: 1. A right ovarian dominant follicle. 2. Small Nabothian cysts in the cervix region. 3. Small amount of free fluid in the pelvis may be on a physiologic basis. Assessment & Plan - Diagnosis (1) Ileitis Is this a current diagnosis for this admission?: Yes - Time Time Spent with patient: Less than 15 minutes - Plan Summary Plan Summary: This is a 39-year-old female status post exploratory laparoscopy with appendectomy. The patient was found to have acutely inflamed terminal ileum. The patient feels much better after receiving antibiotics. Switch patient to oral antibiotics. Start diet today. Ambulate in the hallway. If all goes well, the patient may be fit for discharge later today.
[2019-12-11] MEDS: IBUPROFEN 800 MG TABLET PO SCH ×3 (09:50→18:22)
[2019-12-11] MEDS: FAMOTIDINE 20 MG TABLET PO SCH ×2 (09:52→21:06)
[2019-12-11] MEDS: LEVOFLOXACIN 500 MG TABLET PO SCH (09:52)
[2019-12-11] MEDS: ENOXAPARIN SODIUM INJ 40 MG/0.4 ML DISP.SYRIN SUBCUT SCH ×2 (09:53→09:54)
[2019-12-11] MEDS: BISACODYL 5 MG TABEC PO SCH ×2 (10:36→18:24)
--- NOTE | 2019-12-11 10:39 | PDOC PROGRESS REPORT ---
Subjective Progress Note for:: 12/11/19 Reason For Visit: RIGHT LOWER QUADRANT ABDOMINAL PAIN 12/11/2019 Admitted for right lower quadrant abdominal pain Physical Exam Vital Signs: Temp Pulse Resp BP Pulse Ox 98.4 F 65 16 109/65 100 12/11/19 08:18 12/11/19 08:18 12/11/19 08:18 12/11/19 08:18 12/11/19 08:18 Intake & Output 12/10/19 12/11/19 12/12/19 06:59 06:59 06:59 Intake Total 1999 2593 240 Output Total 5 Balance 1999 2588 240 Weight 63.503 kg 66.5 kg General appearance: PRESENT: no acute distress Respiratory exam: PRESENT: clear to auscultation mayr. ABSENT: rales, rhonchi, wheezes Cardiovascular exam: PRESENT: RRR. ABSENT: diastolic murmur, rubs, systolic murmur GI/Abdominal exam: PRESENT: other - Deferred to surgery Neurological exam: PRESENT: alert, awake, oriented to person, oriented to place, oriented to time, oriented to situation, CN II-XII grossly intact. ABSENT: motor sensory deficit Psychiatric exam: PRESENT: appropriate affect, normal mood. ABSENT: homicidal ideation, suicidal ideation Results Laboratory Results: 12/11/19 06:42 12/11/19 06:42 12/10/19 12/10/19 12/10/19 11:40 11:40 11:40 WBC 8.9 RBC 4.38 Hgb 13.6 D Hct 38.8 MCV 89 MCH 31.0 MCHC 35.0 RDW 13.1 Plt Count 302 Seg Neutrophils % 80.4 H Sodium 134.7 L Potassium 4.4 Chloride 100 Carbon Dioxide 26 Anion Gap 9 BUN 9 Creatinine 0.59 Est GFR ( Amer) > 60 Glucose 95 Lactic Acid 0.9 Calcium 9.0 Total Bilirubin 0.5 AST 14 Alkaline Phosphatase 68 Total Protein 6.3 Albumin 3.7 Lipase 83.8 12/11/19 12/11/19 06:42 06:42 WBC 10.4 RBC 3.94 Hgb 12.2 Hct 34.8 L MCV 88 MCH 30.9 MCHC 35.1 RDW 12.7 Plt Count 250 Seg Neutrophils % Sodium 134.6 L Potassium 4.1 Chloride 104 Carbon Dioxide 21 L Anion Gap 10 BUN 8 Creatinine 0.53 Est GFR ( Amer) > 60 Glucose 86 Lactic Acid Calcium 8.5 Total Bilirubin AST Alkaline Phosphatase Total Protein Albumin Lipase 12/09/19 14:50 Troponin I < 0.012 Impressions: Abdomen Ultrasound 12/09/19 14:31 IMPRESSION: Unremarkable right upper quadrant ultrasound. Abdomen/Pelvis CT 12/10/19 00:00 IMPRESSION: Since the prior CT exam 1900 hours last evening, patient has developed free pelvic fluid and right lower quadrant fluid tracking up the right pericolic gutter. Limited oral contrast from the stomach. Unable to definitely identify the appendix Abnormal bowel loop seen on prior CT 12/09/2019 1905 hours is persistent. Transvaginal US 12/10/19 10:53 IMPRESSION: 1. A right ovarian dominant follicle. 2. Small Nabothian cysts in the cervix region. 3. Small amount of free fluid in the pelvis may be on a physiologic basis. Assessment and Plan - Diagnosis (1) Abdominal pain Qualifiers: Abdominal location: generalized Qualified Code(s): R10.84 - Generalized abdominal pain Is this a current diagnosis for this admission?: Yes (2) Ileitis Is this a current diagnosis for this admission?: Yes (3) Intraperitoneal fluid Is this a current diagnosis for this admission?: Yes (4) Right lower quadrant abdominal pain Is this a current diagnosis for this admission?: Yes - Plan Summary Summary: 12/11/2019 Temperature 98.4, pulse 64, blood pressure 118/64, O2 sat 100% on room air. WBCs normal 10,400 H&H is stable 12.2 Chemistry panel normal She has been up and ambulatory in the hallway but states that it was quite painful. She tells me she has not had a bowel movement in 4-5 days. 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 Patient states as far as at home she has a teenage daughter that gets home around 3:00 in the afternoon. This morning is just now starting her diet will advance as tolerated Would recommend patient have a normal bowel movement prior to going home. Would also recommend a 10-day course of outpatient p.o. antibiotics for her ileitis. Will be happy to write these prescriptions. Last week patient was on several days of steroids for a "sore throat." No antibiotics at that time. Discussed this with patient and family in the room. I informed them that the surgeon would make the decision about when she can return back to being a schoolteacher. - Time Time Spent with patient: 25-34 minutes
[2019-12-11] MEDS: METRONIDAZOLE 500 MG TABLET PO SCH ×2 (13:02→21:05)
[2019-12-11] MEDS: HYDROCODONE/ACETAMINOPHEN 5-325 MG TABLET PO PRN ×2 (15:33→21:06)
[2019-12-11] MEDS ORDERED: LEVOFLOXACIN 500 MG/D5W RTU 500 MG/100 ML RTUPB IV SCH (18:00)
[2019-12-11] MEDS ORDERED: MAGNESIUM CITRATE 296 ML BOTTLE PO PRN (18:15)
[2019-12-11] MEDS ORDERED: NA PHOS,M-B/NA PHOS,DI-BA (ADULT) 133 ML ENEMA PR PRN (18:15)
[2019-12-12 05:26] LABS: APPEARANCE,URINE CLEAR; BILIRUBIN,URINE NEGATIVE (NEGATIVE); COLOR,URINE YELLOW; GLUCOSE, URINE NEGATIVE (NEGATIVE); KETONES,URINE NEGATIVE (NEGATIVE); LEUKOCYTE ESTERASE,URINE TRACE (NEGATIVE); NITRITE,URINE NEGATIVE (NEGATIVE); PROTEIN,URINE NEGATIVE (NEGATIVE); URINE SPECIFIC GRAVITY 1.016; UROBILINOGEN,URINE NEGATIVE mg/dL (<2.0)
[2019-12-12] MEDS: METRONIDAZOLE 500 MG TABLET PO SCH (06:05)
[2019-12-12] MEDS: HYDROCODONE/ACETAMINOPHEN 5-325 MG TABLET PO PRN (09:32)
[2019-12-12] MEDS: FAMOTIDINE 20 MG TABLET PO SCH (09:32)
[2019-12-12] MEDS: LEVOFLOXACIN 500 MG TABLET PO SCH (09:32)
[2019-12-12] MEDS: IBUPROFEN 800 MG TABLET PO SCH (09:32)
[2019-12-12] MEDS: ENOXAPARIN SODIUM INJ 40 MG/0.4 ML DISP.SYRIN SUBCUT SCH (09:33)
--- NOTE | 2019-12-12 10:28 | PDOC DISCHARGE SUMMARY ---
General - Admit/Disc Date/PCP Admission Date/Primary Care Provider: 12/10/19 15:51 XAVIER YANG MD Discharge Date: 12/12/19 - Discharge Diagnosis Final Diagnosis: Terminal ileitis, right lower quadrant pain - Assessment Summary: The patient is a healthy 39-year-old female who presented to the emergency room on December 10, 2019 complaining of right upper quadrant pain. The blood work was within normal limits, a CT scan of the abdomen pelvis revealed a small amount of right pelvic fluid. The appendix was not identified. The patient underwent a transvaginal ultrasound which showed only the presence of right ovarian cysts without evidence of ovarian cyst rupture and a right pelvic fluid. CT scan abdomen pelvis was repeated 12 hours afterward and confirmed the presence of an increased amount of right pelvic fluid but no other reasons for her right lower quadrant abdominal pain. Because of the symptoms and the lack of diagnosis by imaging, the patient was taken to surgery and underwent diagnostic laparoscopy which revealed a terminal ileitis with normal appendix which was removed. The postop course was unremarkable, her vital signs remained stable. On day of discharge December 12, 2019 the patient had no complaints, she was tolerating p.o. well, her vital signs were stable, blood work within normal limits, physical exam unremarkable with abdomen soft, not distended, not tender, all incisions were clean, dry, and intact. The patient postoperatively gave a history of having been in close contact with tropical animals during a recent trip (2 weeks ago) to [facility] (apparently, she was hand feeding iguanas and or other tropical animals). In addition, the patient reported that some of her female friends present during the same trip had symptoms similar to hers once they returned to the [facility]. Therefore, the patient must have suffered from infectious terminal ileitis acquired from the close contact with those tropical animals. During the hospitalization, the patient was evaluated by the hospitalist that she will be discharged to home on a 10-day course of oral appropriate oral antibiotics. Discharge orders: Discharge to home today December 12, 2019 Follow-up with your medical doctor within 2 weeks Follow-up with Dr. Cunningham in 2 weeks The patient can shower only for 2 weeks then she can tub bathe Activity as tolerated without restrictions The patient can drive and go up and down the stairs The patient return to work when she feels like Home medications Tylenol only as needed for pain No wound care needed The patient will be sent home with a prescription for stool culture 12/11/2019 Temperature 98.4, pulse 64, blood pressure 118/64, O2 sat 100% on room air. WBCs normal 10,400 H&H is stable 12.2 Chemistry panel normal She has been up and ambulatory in the hallway but states that it was quite painful. She tells me she has not had a bowel movement in 4-5 days. 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 Patient states as far as at home she has a teenage daughter that gets home around 3:00 in the afternoon. This morning is just now starting her diet will advance as tolerated Would recommend patient have a normal bowel movement prior to going home. Would also recommend a 10-day course of outpatient p.o. antibiotics for her ileitis. Will be happy to write these prescriptions. Last week patient was on several days of steroids for a "sore throat." No antibiotics at that time. Discussed this with patient and family in the room. I informed them that the surgeon would make the decision about when she can return back to being a schoolteacher. - Additional Information Resuscitation Status: Full Code Discharge Diet: Regular Discharge Activity: Activity As Tolerated, No tub bath - Patient can shower, tub bath in 2 weeks, Other - Driving allowed, physical to be allowed, patient go up and down the stairs Referrals: ROMARIO WEISS PA-C [NO LOCAL MD] - Follow up as needed Home Medications: Doxylamine Succinate [Unisom] 25 mg PO HSP PRN 12/10/19 Phentermine HCl [Adipex-P] 37.5 mg PO DAILY 12/10/19 History of Present Illiness History of Present Illness: CHRISTINA DAVIDSON is a 39 year old female, healthy, with a history ovarian cyst since young age, who presents to the emergency room with a complain of right lower quadrant pain intense nausea and emesis. The patient has undergone 2 CT scan of the abdomen pelvis as well as an ultrasound transvaginal of the abdomen, both have been overall nondiagnostic except for the presence of a small amount of free fluid in the right pelvis. Her white blood cell count and urine kathrin lysis are normal. The patient still complains of right lower quadrant pain throughout the entire emergency room stay for the past 16 hours. Physical Exam Vital Signs: Temp Pulse Resp BP Pulse Ox 98.0 F 69 16 111/60 100 12/12/19 07:22 12/12/19 07:22 12/12/19 07:22 12/12/19 07:22 12/12/19 07:22 Intake & Output 12/11/19 12/12/19 12/13/19 06:59 06:59 06:59 Intake Total 2648 240 Output Total 5 Balance 2643 240 Weight 66.5 kg 65 kg Results Laboratory Results: WBC 10.4 10^3/uL (4.0-10.5) 12/11/19 06:42 RBC 3.94 10^6/uL (3.72-5.28) 12/11/19 06:42 Hgb 12.2 g/dL (12.0-15.5) 12/11/19 06:42 Hct 34.8 % (36.0-47.0) L 12/11/19 06:42 MCV 88 fl (80-97) 12/11/19 06:42 MCH 30.9 pg (27.0-33.4) 12/11/19 06:42 MCHC 35.1 g/dL (32.0-36.0) 12/11/19 06:42 RDW 12.7 % (11.5-14.0) 12/11/19 06:42 Plt Count 250 10^3/uL (150-450) 12/11/19 06:42 Lymph % (Auto) 11.1 % (13-45) L 12/10/19 11:40 [place] % (Auto) 7.4 % (3-13) 12/10/19 11:40 Eos % (Auto) 0.6 % (0-6) 12/10/19 11:40 Baso % (Auto) 0.5 % (0-2) 12/10/19 11:40 Absolute Neuts (auto) 7.1 10^3/uL (1.7-8.2) 12/10/19 11:40 Absolute Lymphs (auto) 1.0 10^3/uL (0.5-4.7) 12/10/19 11:40 Absolute Monos (auto) 0.7 10^3/uL (0.1-1.4) 12/10/19 11:40 Absolute Eos (auto) 0.1 10^3/uL (0.0-0.6) 12/10/19 11:40 Absolute Basos (auto) 0.0 10^3/uL (0.0-0.2) 12/10/19 11:40 Seg Neutrophils % 80.4 % (42-78) H 12/10/19 11:40 ESR 10 mm/hr (0-20) 12/10/19 23:06 Sodium 134.6 mmol/L (137-145) L 12/11/19 06:42 Potassium 4.1 mmol/L (3.6-5.0) 12/11/19 06:42 Chloride 104 mmol/L (98-107) 12/11/19 06:42 Carbon Dioxide 21 mmol/L (22-30) L 12/11/19 06:42 Anion Gap 10 (5-19) 12/11/19 06:42 BUN 8 mg/dL (7-20) 12/11/19 06:42 Creatinine 0.53 mg/dL (0.52-1.25) 12/11/19 06:42 Est GFR ( Amer) > 60 (>60) 12/11/19 06:42 Est GFR (MDRD) Non-Af > 60 (>60) 12/11/19 06:42 Glucose 86 mg/dL (75-110) 12/11/19 06:42 Lactic Acid 0.9 mmol/L (0.7-2.1) 12/10/19 11:40 Calcium 8.5 mg/dL (8.4-10.2) 12/11/19 06:42 Total Bilirubin 0.5 mg/dL (0.2-1.3) 12/10/19 11:40 Direct Bilirubin 0.2 mg/dL (0.0-0.4) 12/10/19 11:40 Neonat Total Bilirubin Not Reportable 12/10/19 11:40 Neonat Direct Bilirubin Not Reportable 12/10/19 11:40 Neonat Indirect Bili Not Reportable 12/10/19 11:40 AST 14 U/L (14-36) 12/10/19 11:40 ALT 9 U/L (<35) 12/10/19 11:40 Alkaline Phosphatase 68 U/L (38-126) 12/10/19 11:40 Troponin I < 0.012 ng/mL 12/09/19 14:50 Total Protein 6.3 g/dL (6.3-8.2) 12/10/19 11:40 Albumin 3.7 g/dL (3.5-5.0) 12/10/19 11:40 Lipase 83.8 U/L (23-300) 12/10/19 11:40 Beta HCG, Quant < 2.39 mIU/mL (0.0-6.15) 12/09/19 14:50 Total Beta HCG NEGATIVE (NEGATIVE) 12/09/19 14:50 Urine Color YELLOW 12/12/19 04:35 Urine Appearance CLEAR 12/12/19 04:35 Urine pH 5.0 (5.0-9.0) 12/12/19 04:35 Ur Specific [place] 1.016 12/12/19 04:35 Urine Protein NEGATIVE mg/dL (NEGATIVE) 12/12/19 04:35 Urine Glucose (UA) NEGATIVE mg/dL (NEGATIVE) 12/12/19 04:35 Urine Ketones NEGATIVE mg/dL (NEGATIVE) 12/12/19 04:35 Urine Blood NEGATIVE (NEGATIVE) 12/12/19 04:35 Urine Nitrite NEGATIVE (NEGATIVE) 12/12/19 04:35 Urine Nitrite (Reflex) NEGATIVE (NEGATIVE) 12/09/19 14:50 Urine Bilirubin NEGATIVE (NEGATIVE) 12/12/19 04:35 Urine Urobilinogen NEGATIVE mg/dL (<2.0) 12/12/19 04:35 Ur Leukocyte Esterase TRACE (NEGATIVE) H 12/12/19 04:35 Leukocyte Esterase Rfl NEGATIVE (NEGATIVE) 12/09/19 14:50 Urine WBC (Auto) 2 /HPF 12/12/19 04:35 Urine RBC (Auto) 1 /HPF 12/12/19 04:35 Urine Bacteria (Auto) 1+ /HPF 12/12/19 04:35 Urine WBC (Reflex) 2 /HPF 12/09/19 14:50 Squamous Epi Cells Auto 1 /HPF 12/12/19 04:35 Amorphous Sediment Auto 1+ /HPF 12/09/19 14:50 Urine Mucus (Auto) OCC /LPF 12/12/19 04:35 Urine Ascorbic Acid NEGATIVE (NEGATIVE) 12/12/19 04:35 POC Stool Occult Blood NEGATIVE (NEGATIVE) 12/10/19 11:38 Stool for White Cells NO WBCs SEEN 12/11/19 20:10 12/09/19 14:50 Troponin I < 0.012 Impressions: Abdomen Ultrasound 12/09/19 14:31 IMPRESSION: Unremarkable right upper quadrant ultrasound. Abdomen/Pelvis CT 12/09/19 18:40 IMPRESSION: Tubular partially calcified hyperdense bowel like structure in the mid abdomen. This could represent a Meckel's diverticulum or markedly abnormal appendix. Short segment of small bowel with mural calcification is possible. [facility] [employer] pathology considered unlikely. Findings discussed with the emergency room attending physician. Abdomen/Pelvis CT 12/10/19 00:00 IMPRESSION: Since the prior CT exam 1900 hours last evening, patient has developed free pelvic fluid and right lower quadrant fluid tracking up the right pericolic gutter. Limited oral contrast from the stomach. Unable to definitely identify the appendix Abnormal bowel loop seen on prior CT 12/09/2019 1905 hours is persistent. Transvaginal US 12/10/19 10:53 IMPRESSION: 1. A right ovarian dominant follicle. 2. Small Nabothian cysts in the cervix region. 3. Small amount of free fluid in the pelvis may be on a physiologic basis.
--- NOTE | 2019-12-12 10:47 | PDOC PROGRESS REPORT ---
Subjective Progress Note for:: 12/12/19 Reason For Visit: RIGHT LOWER QUADRANT ABDOMINAL PAIN 12/12/2019 Right lower abdominal pain, appendicitis versus ileitis Physical Exam Vital Signs: Temp Pulse Resp BP Pulse Ox 98.0 F 69 16 111/60 100 12/12/19 07:22 12/12/19 07:22 12/12/19 07:22 12/12/19 07:22 12/12/19 07:22 Intake & Output 12/11/19 12/12/19 12/13/19 06:59 06:59 06:59 Intake Total 2648 240 Output Total 5 Balance 2643 240 Weight 66.5 kg 65 kg General appearance: PRESENT: no acute distress, well-developed, well-nourished Respiratory exam: PRESENT: clear to auscultation mary. ABSENT: rales, rhonchi, wheezes Cardiovascular exam: PRESENT: RRR. ABSENT: diastolic murmur, rubs, systolic murmur GI/Abdominal exam: PRESENT: other - Deferred to general surgery Neurological exam: PRESENT: alert, awake, oriented to person, oriented to place, oriented to time, oriented to situation, CN II-XII grossly intact. ABSENT: motor sensory deficit Psychiatric exam: PRESENT: appropriate affect, normal mood. ABSENT: homicidal ideation, suicidal ideation Results Laboratory Results: 12/11/19 06:42 12/11/19 06:42 12/11/19 12/12/19 20:10 04:35 Urine Color YELLOW Urine Appearance CLEAR Urine pH 5.0 Ur Specific [place] 1.016 Urine Protein NEGATIVE Urine Glucose (UA) NEGATIVE Urine Ketones NEGATIVE Urine Blood NEGATIVE Urine Nitrite NEGATIVE Ur Leukocyte Esterase TRACE H Urine WBC (Auto) 2 Urine RBC (Auto) 1 Stool for White Cells NO WBCs SEEN 12/09/19 14:50 Troponin I < 0.012 Impressions: Abdomen Ultrasound 12/09/19 14:31 IMPRESSION: Unremarkable right upper quadrant ultrasound. Abdomen/Pelvis CT 12/10/19 00:00 IMPRESSION: Since the prior CT exam 1900 hours last evening, patient has developed free pelvic fluid and right lower quadrant fluid tracking up the right pericolic gutter. Limited oral contrast from the stomach. Unable to definitely identify the appendix Abnormal bowel loop seen on prior CT 12/09/2019 1905 hours is persistent. Transvaginal US 12/10/19 10:53 IMPRESSION: 1. A right ovarian dominant follicle. 2. Small Nabothian cysts in the cervix region. 3. Small amount of free fluid in the pelvis may be on a physiologic basis. Assessment and Plan - Diagnosis (1) Abdominal pain Qualifiers: Abdominal location: generalized Qualified Code(s): R10.84 - Generalized abdominal pain Is this a current diagnosis for this admission?: Yes (2) Ileitis Is this a current diagnosis for this admission?: Yes (3) Intraperitoneal fluid Is this a current diagnosis for this admission?: Yes (4) Right lower quadrant abdominal pain Is this a current diagnosis for this admission?: Yes - Plan Summary Summary: The patient is a healthy 39-year-old female who presented to the emergency room on December 10, 2019 complaining of right upper quadrant pain. The blood work was within normal limits, a CT scan of the abdomen pelvis revealed a small amount of right pelvic fluid. The appendix was not identified. The patient underwent a transvaginal ultrasound which showed only the presence of right ovarian cysts without evidence of ovarian cyst rupture and a right pelvic fluid. CT scan abdomen pelvis was repeated 12 hours afterward and confirmed the presence of an increased amount of right pelvic fluid but no other reasons for her right lower quadrant abdominal pain. Because of the symptoms and the lack of diagnosis by imaging, the patient was taken to surgery and underwent diagnostic laparoscopy which revealed a terminal ileitis with normal appendix which was removed. The postop course was unremarkable, her vital signs remained stable. On day of discharge December 12, 2019 the patient had no complaints, she was tolerating p.o. well, her vital signs were stable, blood work within normal limits, physical exam unremarkable with abdomen soft, not distended, not tender, all incisions were clean, dry, and intact. The patient postoperatively gave a history of having been in close contact with tropical animals during a recent trip (2 weeks ago) to [facility] (apparently, she was hand feeding iguanas and or other tropical animals). In addition, the patient reported that some of her female friends present during the same trip had symptoms similar to hers once they returned to the [facility]. Therefore, the patient must have suffered from infectious terminal ileitis acquired from the close contact with those tropical animals. During the hospitalization, the patient was evaluated by the hospitalist that she will be discharged to home on a 10-day course of oral appropriate oral antibiotics. Discharge orders: Discharge to home today December 12, 2019 Follow-up with your medical doctor within 2 weeks Follow-up with Dr. Cunningham in 2 weeks The patient can shower only for 2 weeks then she can tub bathe Activity as tolerated without restrictions The patient can drive and go up and down the stairs The patient return to work when she feels like Home medications Tylenol only as needed for pain No wound care needed The patient will be sent home with a prescription for stool culture 12/11/2019 Temperature 98.4, pulse 64, blood pressure 118/64, O2 sat 100% on room air. WBCs normal 10,400 H&H is stable 12.2 Chemistry panel normal She has been up and ambulatory in the hallway but states that it was quite painful. She tells me she has not had a bowel movement in 4-5 days. 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 Patient states as far as at home she has a teenage daughter that gets home around 3:00 in the afternoon. This morning is just now starting her diet will advance as tolerated Would recommend patient have a normal bowel movement prior to going home. Would also recommend a 10-day course of outpatient p.o. antibiotics for her ileitis. Will be happy to write these prescriptions. Last week patient was on several days of steroids for a "sore throat." No antibiotics at that time. Discussed this with patient and family in the room. I informed them that the surgeon would make the decision about when she can return back to being a schoolteacher.
[2019-12-12 11:38] VITALS: BP 118/63
[2019-12-12] MEDS: BISACODYL 5 MG TABEC PO SCH (12:11)
== END 2019-12-12 11:58 | disposition home or self-care (01) ==
LOC: ER 13:25 → EH 12-10 15:51 → 2N 12-10 16:54
PROVIDERS: ADMIT Surgery; ATTEND Surgery
DX: K50.00 Crohn's disease of small intestine without complications (principal); K38.8 Other specified diseases of appendix; R18.8 Other ascites; R10.31 Right lower quadrant pain; N83.201 Unspecified ovarian cyst, right side; N88.8 Other specified noninflammatory disorders of cervix uteri; Z83.79 Family history of other diseases of the digestive system
CPT/HCPCS: 93005; 96376; 99285; 96361; 96375; 96365; 96366; 96367; 36415 ×3; 87040; 89055; 87205; 87070; 87209; 84702; 83605; 83690 ×2; 87177; 85025 ×2; 85027; 85652; 87075; 80048; 80053 ×2; 81001 ×2; 84484; 88304 ×2; 76705; 76830; 93976; 74176; 74177; 93010; 00790; 44970; G0378 ×4; J2250; J1956; J3490 ×5; J1100; J1200; S0119; J3010 ×2; J1885 ×2; J2270; J2710; J1650; J1170; C9113; J2550 ×2; J0330; J2405 ×2; J7042; J7030 ×3; J7040 ×2; J2704; S0028; J0131; 790

== ENCOUNTER 2020-05-18 08:18 | Day surgery (SDC) | payer BC ==
[2020-05-13 09:46] LABS: HEMATOCRIT 39.2 % (36.0-47.0); HEMOGLOBIN 13.4 g/dL (12.0-15.5); MEAN CORPUSCULAR HEMOGLOBIN 29.3 pg (27.0-33.4); MEAN CORPUSCULAR VOLUME 86 fl (80-97); PLATELET COUNT 230 10^3/uL (150-450); RED BLOOD COUNT 4.56 10^6/uL (3.72-5.28); RED CELL DISTRIBUTION WIDTH 13.4 % (11.5-14.0)
[2020-05-13 10:03] LABS: APPEARANCE,URINE CLEAR; BILIRUBIN,URINE NEGATIVE (NEGATIVE); COLOR,URINE YELLOW; GLUCOSE, URINE NEGATIVE (NEGATIVE); KETONES,URINE NEGATIVE (NEGATIVE); LEUKOCYTE ESTERASE,URINE NEGATIVE (NEGATIVE); NITRITE,URINE NEGATIVE (NEGATIVE); PROTEIN,URINE NEGATIVE (NEGATIVE); URINE SPECIFIC GRAVITY 1.016; UROBILINOGEN,URINE NEGATIVE mg/dL (<2.0)
[2020-05-13 10:19] LABS: ALBUMIN 4.3 g/dL (3.5-5.0); ALKALINE PHOSPHATASE 59 U/L (38-126); ANION GAP 6 (5-19); ASPARTATE AMINO TRANSFERASE 21 U/L (14-36); BILIRUBIN,TOTAL 0.4 mg/dL (0.2-1.3); BLOOD UREA NITROGEN 11 mg/dL (7-20); CALCIUM 9.5 mg/dL (8.4-10.2); CARBON DIOXIDE 27 mmol/L (22-30); CHLORIDE 104 mmol/L (98-107); GLUCOSE 90 mg/dL (75-110); POTASSIUM 4.8 mmol/L (3.6-5.0); TOTAL PROTEIN 7.1 g/dL (6.3-8.2)
[2020-05-13 10:22] LABS: ADD MANUAL MICROSCOPIC YES
[2020-05-13 10:29] LABS: BACTERIA,URINE 2+ /HPF; YEAST,URINE PRESENT
[~2020-05-18 08:18] MED LIST changes: +DEXAMETHASONE SOD PHOSPHATE INJ 4 MG/1 ML VIAL ONE; +FENTANYL CITRATE INJ/PF 100 MCG/2 ML AMPUL ONE; -FERUMOXYTOL 510 MG in NORMAL SALINE 100 ML IV PRN; +GENTAMICIN SULFATE 80 MG in DEXTROSE 5%-WATER 100 ML IV PRN; +LACTATED RINGERS 1000 ML IV PRN; +LIDOCAINE 0.5% INJ-PF (5 MG/ML) 50 ML SDV SUBCUT PRN; +MIDAZOLAM 2 MG/2 ML INJ ONE; -NORMAL SALINE 250 ML IV PRN; +ONDANSETRON HCL INJ/PF 4 MG/2 ML SDV ONE; +PROPOFOL INJ 200 MG/20 ML VIAL IV ONE
[2020-05-18] MEDS ORDERED: LIDOCAINE 1% INJ-PF (10 MG/ML) 30 ML SDV ONE (09:57)
[2020-05-18] MEDS ORDERED: MEPERIDINE HCL/PF INJ 25 MG/1 ML DISP.SYRIN IV PRN (11:00)
[2020-05-18] MEDS ORDERED: DIPHENHYDRAMINE HCL 50 MG/ML VIAL IV PRN (11:00)
[2020-05-18] MEDS ORDERED: PROMETHAZINE HCL INJ 25 MG/1 ML VIAL IV PRN ×2 (11:00)
[2020-05-18] MEDS ORDERED: ONDANSETRON HCL INJ/PF 4 MG/2 ML SDV IV PRN (11:00)
[2020-05-18] MEDS ORDERED: MORPHINE SULFATE 10 MG/ML INJ IV PRN (11:00)
[2020-05-18] MEDS ORDERED: FENTANYL CITRATE INJ/PF 100 MCG/2 ML AMPUL IV PRN ×3 (11:00)
[2020-05-18] MEDS: MORPHINE SULFATE 10 MG/ML INJ ONE ×2 (11:38→11:45)
--- NOTE | 2020-05-18 11:43 | Operative Report ---
Operative Report DATE OF SURGERY: 05/18/20 PREOPERATIVE DIAGNOSIS: Menotrorrhagia POSTOPERATIVE DIAGNOSIS: same OPERATION: D&C Hysteroscopy Novasure ANESTHESIA: GA TISSUE REMOVED OR ALTERED: Endometrium COMPLICATIONS: None ESTIMATED BLOOD LOSS: 25 cc INTRAOPERATIVE FINDINGS: Normal female with slightly enlarged uterus PROCEDURE: Patient was brought into the room and placed on the table in supine position. She was then inducted under general anesthesia. Following this she was repositioned in a dorsolithotomy position prepped and draped in a sterile fashion. After timeout the bladder was drained of approximately 25 cc of normal urine. Pelvic under anesthesia was then performed with the above findings. A weighted vaginal speculum was inserted into the vagina. The cervix was grasped on its anterior lip with a single-tooth tenaculum and an Allis clamp. Using a dilator the cervix measured 4 cm. Cervix was dilated to a #8 Hegar dilator. The uterine cavity was sounded to 10 cm. This gave us a cavity length of 6 cm. A suction was carried out with a #8 suction catheter. Hysteroscopy was then performed with normal findings. The NovaSure equipment was opened up and the system purged. The NovaSure was gently inserted through the cervix into the uterine cavity and then opened up. Then going north-south east west and twisting we had a cavity length of 6 cm a width of 4.6 cm. The system was then tested with the plunger in place. The system tested okay for burn. The power was enabled at power of 152. Burn time was 51 seconds. The NovaSure was closed and removed from the uterine cavity. The uterine cavity was then reevaluated with the hysteroscope. There appeared to be a good burn. The excess saline was then suctioned out. The Allis and the tenaculum were removed from the anterior lip of the cervix. Excess blood was was removed with a sponge forcep. The tenaculum site was noted to have slight amount of bleeding and Monsel solution was applied. This terminated procedure. Anesthesia was discontinued patient was placed back in the supine position. Patient was transferred recovery room in satisfactory condition. Dr. Watters dictating on 05/18/2020.
[2020-05-18 16:03] VITALS: BP 101/60
== END 2020-05-18 13:30 | disposition home or self-care (01) ==
LOC: OROUT 08:18
PROVIDERS: ATTEND Obstetrics & Gynecology
DX: N92.1 Excessive and frequent menstruation with irregular cycle (principal); N94.6 Dysmenorrhea, unspecified; N92.0 Excessive and frequent menstruation with regular cycle; N85.2 Hypertrophy of uterus; D64.9 Anemia, unspecified; Z03.818 Encounter for observation for suspected exposure to other biological agents ruled out
CPT/HCPCS: 58563; 36415; 85027; 87635; 81025; 80053; 81001; 88305 ×2; J2250; J1100; J3010; J1580; J2270; J2405; J7060; J2704; C9803; 952; J3490